=== PATIENT | female | born 1960 | race Hispanic/Latino ===

== ENCOUNTER → 2021-07-27 | Outpatient (CLI) | payer OTHER | LOC: RAH 13:00 | PROVIDERS: ATTEND Family Medicine | DX: Z02.71 Encounter for disability determination (principal) | CPT/HCPCS: 73502; 73560 ==

== ENCOUNTER → 2024-02-09 | Outpatient (CLI) | payer OTHER | END | disposition home or self-care (01) | LOC: RAH 08:56 | PROVIDERS: ATTEND Surgery | DX: K44.9 Diaphragmatic hernia without obstruction or gangrene (principal); K29.70 Gastritis, unspecified, without bleeding | CPT/HCPCS: 74240 ==

== ENCOUNTER → 2025-03-12 | Outpatient (CLI) | payer OTHER ==
[~2025-03-12] MED LIST: ATOR40TA71 PO; BACL10TA PO; DULO30CA52 PO; GLIP5TAB15 PO; LAMO25TA72 PO; LEVO100C5 PO; METF-446 PO; OLME20TA68 PO; PANT40TA54 PO; PIOG15TA66 PO; TOLT4CAP27 PO; TRAZ-185 PO; estradiol VG; vitamin b6 PO
[2025-03-12 11:26] LABS: IMMATURE GRANULOCYTE ABSOLUTE 0.02 K/uL (0-1); NUCLEATED RED BLOOD CELLS 0.0 % (0.0-0.19); PLATELET COUNT (AUTO) 292 K/uL (130-400); RED BLOOD CELL COUNT(AUTO) 4.44 MIL/uL (4.00-5.50); RED CELL DISTRIBUTION WIDTH 14.2 % (11.0-15.5); WHITE BLOOD COUNT (AUTO) 8.4 K/uL (4.8-10.8)
[2025-03-12 11:38] LABS: ASPARTATE AMINOTRANSFERASE 17.0 U/L (10-37); CREATININE 0.9 mg/dL (0.5-1.0); GLOMERULAR FILTR. RATE CALC 71.0 mL/min (>90); GLUCOSE,RANDOM 131.0 mg/dL (70-105); SODIUM SERUM 142.0 mmol/L (136-145); TOTAL PROTEIN, SERUM 7.1 g/dL (6.0-8.3); UREA NITROGEN, BLOOD 20.0 mg/dL (7-18)
== END | disposition home or self-care (01) ==
LOC: LAB 10:35
PROVIDERS: ATTEND Internal Medicine Gastroenterology
DX: R10.9 Unspecified abdominal pain (principal)
CPT/HCPCS: 36415; 80053; 85025

== ENCOUNTER → 2025-03-14 | Outpatient (CLI) | payer OTHER ==
[~2025-03-14] MED LIST changes: +IOHEXOL-350 75 ML VIAL IV ONE
--- NOTE | 2025-03-14 16:14 | HMCIMG ---
EXAM: CT Abdomen and Pelvis with Intravenous Contrast CLINICAL HISTORY: Abdominal pain TECHNIQUE: Axial computed tomography images of the abdomen and pelvis with intravenous contrast. Dose reduction technique was used including one or more of the following: automated exposure control, adjustment of mA and kV according to patient size, and/or iterative reconstruction. Total exam DLP is 11 for 3.30. Subtotal CTDI volume is 24.10. CONTRAST: With intravenous contrast. COMPARISON: None provided. FINDINGS: LUNG BASES: No basilar airspace consolidation or pleural effusion. LIVER: Unremarkable. GALLBLADDER AND BILE DUCTS: Unremarkable. No calcified stone. No ductal dilation. PANCREAS: Unremarkable. SPLEEN: Unremarkable. ADRENAL GLANDS: Unremarkable. KIDNEYS, URETERS, AND BLADDER: Left renal partly exophytic non-enhancing hypodense (HU 10) cyst measuring 2.1 cm, without fat with calcifications in it. Per consensus, no follow-up is needed for simple Bosniak type 1 and 2 renal cysts, unless the patient has a malignancy history or risk factors. There is no renal, ureteric calculi, or hydroureteronephrosis. Delayed 7 minutes images have also been acquired which demonstrate normal contrast excretion through the bilateral renal pelvicalyceal system and ureters, without hydronephrosis. The urinary bladder is incompletely distended at the time of examination. STOMACH AND BOWEL: Gastric sleeve surgery status. There are scattered colonic diverticula, without diverticulitis. There is thickening versus underdistention of the sigmoid colon. In the appropriate setting, early acute sigmoid colitis is not excluded. No obstruction. APPENDIX: No CT evidence for appendicitis. The appendix is unremarkable, series 2, image 44 - 50/99. PERITONEUM: No free fluid. No free air. LYMPH NODES: No lymphadenopathy. REPRODUCTIVE: The uterus is surgically absent. The adnexa are unremarkable. VASCULATURE: The abdominal aorta demonstrates atheromatous calcification without aneurysm or dissection. ABDOMINAL WALL AND SOFT TISSUES: There are multiple pelvic phleboliths. BONES: There are degenerative changes in the spine. Varying size of disc herniations at L2-L3 through L5-S1 levels causing thecal sac indentation. There is grade I anterolisthesis of L5 over S1, with right sided spondylolysis. Metallic screws are visualized fixating the bilateral sacro-iliac joints. No acute fracture. IMPRESSION: 1. Thickening versus underdistention of the sigmoid colon; in the appropriate setting, early acute sigmoid colitis is not excluded. 2. Scattered colonic diverticula, without diverticulitis. 3. 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 4. Bosniak class I left renal cyst. 5. Several additional chronic and incidental findings are noted, as detailed in the body of the report. /[place]
== END | disposition home or self-care (01) ==
LOC: RAH 07:23
PROVIDERS: ATTEND Internal Medicine Gastroenterology
DX: K57.30 Diverticulosis of large intestine without perforation or abscess without bleeding (principal); M47.816 Spondylosis without myelopathy or radiculopathy, lumbar region; M51.27 Other intervertebral disc displacement, lumbosacral region; M51.26 Other intervertebral disc displacement, lumbar region; M43.17 Spondylolisthesis, lumbosacral region; N28.1 Cyst of kidney, acquired; I87.8 Other specified disorders of veins; R10.9 Unspecified abdominal pain; Z90.710 Acquired absence of both cervix and uterus
CPT/HCPCS: 74177; Q9967